=== PATIENT | female | born 1950 | race Caucasian/White ===

== ENCOUNTER 2017-02-28 18:42 | Emergency (ER) | payer MEDICARE ==
[2017-02-28 21:21] LABS: Hematocrit 34 % (35-47); Hemoglobin 11.2 g/dl (12.0-16.0); Mean Corpuscular HGB Conc 33 g/dl (31-36); Mean Corpuscular Hemoglobin 31 pg (27-31); Mean Corpuscular Volume 93 fL (80-97); Mean Platelet Volume 7 um3 (7.4-10.4); Red Blood Count 3.61 10^6/ul (4.0-5.4); Red Cell Distribution Width 13 % (10.5-15); White Blood Count 8.8 10^3/ul (3.5-10.8)
[2017-02-28 21:38] LABS: Albumin 3.8 g/dL (3.2-5.2); BUN/Creatinine Ratio 23.2 (8-20); EGFR African American 139.7 (>60); EGFR Non-African American 108.6 (>60); Globulin 2.6 g/dL (2-4); Potassium 4.4 mmol/L (3.5-5.0); Total Bilirubin 0.6 mg/dL (0.2-1.0); Total Protein 6.4 g/dL (6.4-8.9)
[2017-02-28 21:39] LABS: Troponin I 0.02 ng/mL (<0.04)
--- NOTE | 2017-02-28 21:46 | RAD ---
INDICATION: Dizziness COMPARISON: None TECHNIQUE: Noncontrast axial source images were acquired from the skull base to the vertex. FINDINGS: Ventricles/sulci: The ventricles and cisterns are normal in size and configuration for age. Brain parenchyma: There is no focal parenchymal finding, evidence of intracranial mass, or intracranial mass effect. Intracranial hemorrhage:None. Extra-axial spaces: There are no abnormal extra axial fluid collections or evidence of extra-axial mass. Calvarium: There is no calvarial fracture or other calvarial abnormality. Scalp: There is no evidence of scalp or extracalvarial soft tissue abnormality. Paranasal sinuses/mastoid: The paranasal sinuses and mastoid air cells are clear. Other: None. IMPRESSION: No acute intracranial findings
[2017-02-28] MEDS ORDERED: NS 0.9% 1000 ML* 1,000 ML IV ONE (22:31)
--- NOTE | 2017-02-28 23:55 | ED ---
Guillermo Martinez Alfonso, scribed for Akash Eduardo MD on 02/28/17 at 2035 . Dizziness - HPI Summary HPI Summary: This patient is a 66 year old female presenting to [facility] c/o vertigo that became worse at 1100 today. Her symptoms were most severe at 1630. Sx aggravated by nothing and alleviated by Meclizine at 1700. She reports nausea, difficultly driving, and feeling "not centered." The patient reports having these symptoms over the last month, but not being able to lift her arms and shaking in all her extremities are new today. She also reports slower speech and "I dont feel like I am being articulate. She denies room spinning. PMHx of vertigo. - History Of Current Complaint Chief Complaint: EDDizziness Stated Complaint: CANT LIFT ARMS/LEGS,NAUSEOUS Time Seen by Provider: 02/28/17 20:22 Hx Obtained From: Patient Onset/Duration: Resolved Timing: Hours - Since 1100 Severity Initially: Moderate Severity Currently: Moderate Aggravating Factor(s): Nothing Alleviating Factor(s): Other - Meclizine Associated Signs And Symptoms: Positive: Nausea, Other: - Positive difficulty driv - Allergies/Home Medications Allergies/Adverse Reactions: Allergies Allergy/AdvReac Type Severity Reaction Status Date / Time No Known Drug Allergy Allergy See Comment Verified 09/28/15 13:32 seasonal allergies Allergy Unknown Uncoded 09/28/15 06:49 Reaction Details Home Medications: Home Medications Biotin [Eql Biotin] 5,000 mcg PO DAILY 02/28/17 [History Confirmed 02/28/17] Diphenhydramine HCl 25 mg PO 02/28/17 [History] Fexofenadine HCl [Allergy Relief 24Hr] 180 mg PO DAILY 02/28/17 [History Confirmed 02/28/17] Flaxseed (Linseed) [Flax Seed Oil 1000 mg] 1 cap PO DAILY 02/28/17 [History Confirmed 02/28/17] Meclizine HCl [Meclizine 25] 25 mg PO BID PRN 02/28/17 [History Confirmed ] Ondansetron [Zofran 4 MG Odt] 4 mg PO Q12HR PRN 02/28/17 [History Confirmed ] Zolpidem Tartrate [Ambien] PO PRN 02/28/17 [History] PMH/Surg Hx/FS Hx/Imm Hx Endocrine/Hematology History: Denies: Hx Diabetes Cardiovascular History: Reports: Other Cardiovascular Problems/Disorders - 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 Not anymore she says. Denies: Hx Congestive Heart Failure, Hx Hypertension, Hx Pacemaker/ICD Respiratory History: Reports: Hx Asthma, Hx Sleep Apnea, Other Respiratory Problems/Disorders - PNEUMONIA 06/24 GI History: Reports: Hx Gastroesophageal Reflux Disease, Hx Jaundice - WITH HEP A History: Denies: Hx Renal Disease Musculoskeletal History: Reports: Hx Arthritis - NECK Denies: Hx Osteoporosis Sensory History: Reports: Hx Contacts or Glasses Denies: Hx Hearing Aid Opthamlomology History: Reports: Hx Contacts or Glasses Psychiatric History: Reports: Hx Anxiety - currently Denies: Hx Panic Disorder - Cancer History Hx Chemotherapy: No Hx Radiation Therapy: No - Surgical History Surgery Procedure, Year, and Place: LAPBAND THEN LAPBAND REMOVED THEN GASTRIC BYPASS 09/28/15 Hx Anesthesia Reactions: No Infectious Disease History: No Infectious Disease History: Reports: Hx Hepatitis - HEP A IN Denies: Traveled Outside the [place] in Last 30 Days - Family History Known Family History: Positive: Cardiac Disease - Father [place], Diabetes - Brother , Other - Breast cancer mother - Social History Alcohol Use: She said usually she drinks on weekends but has not been drinking in awhile Alcohol Amount: 2/WEEK Substance Use Type: Reports: None Smoking Status (MU): Former Smoker Type: Cigarettes Length of Time of Smoking/Using Tobacco: Started late 1969 and smoked for 5 years. Have You Smoked in the Last Year: No Review of Systems Positive: Nausea Positive: Other - Not being able to lift her arms and shaking in all her extremities are new today Neurological: Other - Positive vertigo, difficultly driving, feeling "not centered, slower speech, and feeling like I am being articulate. Negative room spinning. All Other Systems Reviewed And Are Negative: Yes Physical Exam Triage Information Reviewed: Yes Vital Signs On Initial Exam: Initial Vitals Temp Pulse Resp BP Pulse Ox 96.5 F 66 18 151/83 100 02/28/17 18:44 02/28/17 18:44 02/28/17 18:44 02/28/17 18:44 02/28/17 18:44 Vital Signs Reviewed: Yes Appearance: Positive: Well-Appearing, No Pain Distress Skin: Positive: Warm, Skin Color Reflects Adequate Perfusion, Dry Head/Face: Positive: Normal Head/Face Inspection Eyes: Positive: Other: - Non fatiguing horizontal nystagmus in both directions and at rest ENT: Positive: Normal ENT inspection Neck: Positive: Supple, Nontender Respiratory/Lung Sounds: Positive: Clear to Auscultation, Breath Sounds Present Cardiovascular: Positive: RRR Abdomen Description: Positive: Nontender, Soft Bowel Sounds: Positive: Present Musculoskeletal: Positive: Normal Neurological: Positive: Normal, Sensory/Motor Intact, Alert, Oriented to Person Place, Time, CN Intact II-III Psychiatric: Positive: Normal Diagnostics - Vital Signs Vital Signs Temp Pulse Resp BP Pulse Ox 02/28/17 19:54 97.3 F 59 20 144/89 100 02/28/17 18:44 96.5 F 66 18 151/83 100 - Laboratory Lab Results: Lab Results 02/28/17 02/28/17 02/28/17 Range/Units 21:15 21:15 21:15 WBC 8.8 (3.5-10.8) 10^3/ul RBC 3.61 L (4.0-5.4) 10^6/ul Hgb 11.2 L (12.0-16.0) g/dl Hct 34 L (35-47) % MCV 93 (80-97) fL MCH 31 (27-31) pg MCHC 33 (31-36) g/dl RDW 13 (10.5-15) % Plt Count 174 (150-450) 10^3/ul MPV 7 L (7.4-10.4) um3 Neut % (Auto) 75.2 (38-83) % Lymph % (Auto) 17.1 L (25-47) % [place] % (Auto) 4.8 (1-9) % Eos % (Auto) 2.5 (0-6) % Baso % (Auto) 0.4 (0-2) % Absolute Neuts (auto) 6.6 (1.5-7.7) 10^3/ul Absolute Lymphs (auto) 1.5 (1.0-4.8) 10^3/ul Absolute Monos (auto) 0.4 (0-0.8) 10^3/ul Absolute Eos (auto) 0.2 (0-0.6) 10^3/ul Absolute Basos (auto) 0 (0-0.2) 10^3/ul Absolute Nucleated RBC 0.01 10^3/ul Nucleated RBC % 0.1 Sodium 123 L (133-145) mmol/L Potassium 4.4 (3.5-5.0) mmol/L Chloride 93 L (101-111) mmol/L Carbon Dioxide 24 (22-32) mmol/L Anion Gap 6 (2-11) mmol/L BUN 13 (6-24) mg/dL Creatinine 0.56 (0.51-0.95) mg/dL Est GFR ( Amer) 139.7 (>60) Est GFR (Non-Af Amer) 108.6 (>60) BUN/Creatinine Ratio 23.2 H (8-20) Glucose 115 H (70-100) mg/dL Lactic Acid 0.6 (0.5-2.0) mmol/L Calcium 9.0 (8.6-10.3) mg/dL Total Bilirubin 0.60 (0.2-1.0) mg/dL AST 24 (13-39) U/L ALT 24 (7-52) U/L Alkaline Phosphatase 117 H (34-104) U/L Troponin I 0.02 (<0.04) ng/mL Total Protein 6.4 (6.4-8.9) g/dL Albumin 3.8 (3.2-5.2) g/dL Globulin 2.6 (2-4) g/dL Albumin/Globulin Ratio 1.5 (1-3) Result Diagrams: 02/28/17 21:15 02/28/17 21:15 Lab Statement: Any lab studies that have been ordered have been reviewed, and results considered in the medical decision making process. - CT CT Brain CT Interpretation: No Acute Changes - No acute intracranial findings CT Interpretation Completed By: Radiologist - EKG 2021 Cardiac Rate: NL EKG Rhythm: Sinus Rhythm EKG Interpretation: LBBB Re-Evaluation - Re-Evaluation First Eval Re-Evaluation Time: 22:28 Comment: Discussed results with the patient. They do not want to be admitted to the hospital. Dizzy Course/Dx - Course Course Of Treatment: Ms. Lozano had an acute exacerbation of her chronic vertigo today. It was accompanied by unusual symptoms such as a C/O her arms and legs not working right. She is feeling better. Her W/U showed hyponatremia and she admitted that she has been drinking a lot of water because of her gastric bypass. I recommended admission because of the odd arm and leg involvment but she refused saying she felt better. She got a lliter of NS here and I recommended she curb her water intake to 2 liters for now and F/U. - Diagnoses Provider Diagnoses: Vertigo, Hyponatremia Discharge - Discharge Plan Condition: Stable Disposition: HOME Patient Education Materials: Hyponatremia (ED), Vertigo (ED) Referrals: Berna Trinidad MD [Primary Care Provider] - 3 Days The documentation as recorded by the Guillermo yan Alfonso accurately reflects the service I personally performed and the decisions made by me, Akash Eduardo MD.
[2017-03-01 00:41] VITALS: BP 130/81
== END 2017-03-01 00:42 | disposition home or self-care (01) ==
LOC: ED 18:42
DX: R42 Dizziness and giddiness (principal); E87.1 Hypo-osmolality and hyponatremia; R11.0 Nausea; Z87.891 Personal history of nicotine dependence
CPT/HCPCS: 36415; 70450; 80053; 83605; 84484; 85025; 93005; 99283

== ENCOUNTER → 2019-07-01 06:47 | Day surgery (SDC) | payer MEDICARE ==
[~2019-07-01 06:47] MED LIST: Acetaminophen TAB* 325 MG PO PRN; Buffered Lidocaine 1% SYRIN* 1 ML/SYRINGE INTRADERM ONE; Bupivacaine 0.25% W/EPI* 10 ML SDV ONE; Dexamethasone IV* 4 MG/ML 1 ML (4 MG) IV SLOW PU ONE; Dexamethasone IV* 4 MG/ML 1 ML (4 MG) ONE; DiMENhydriNATE IV* 50 MG/ML VIAL IV PUSH PRN; Famotidine IV* 10 MG/ML 2 ML (20 mg) IV ONE; Famotidine IV* 10 MG/ML 2 ML (20 mg) ONE; Glycopyrrolate IV* 0.2 MG/ML 1 ML VIAL ONE; HYDROcodone/ACETAMIN 5-325 MG* 1 TAB PO PRN; Ketorolac INJ* 30 MG/ML 1 ML VIAL ONE; Lactated Ringers 1000 ML Bag* 1,000 ML IV SCH; Lidocaine 2% PF * 5 ML VIAL ONE; Midazolam* 1 MG/ML 2 ML VIAL (2 MG) ONE; Naloxone* 0.4 MG/ML 1 ML VIAL IV PRN; Neostigmine Methylsulfate* 3 MG/3 ML SYRINGE ONE; Ondansetron INJ* 2 MG/ML VIAL ONE; Propofol* 10 MG/ML 20 ML BTL ONE; Rocuronium* 10 MG/ML VIAL ONE; ceFAZolin 2 GM PREMIX in ORs 2 GM/50 ML BAG ONE; fentaNYL* 50 MCG/ML 2 ML VIAL (100 MCG VIAL) ONE; oxyCODONE TAB* 5 MG TAB ONE
[2019-07-01] MEDS: fentaNYL* 50 MCG/ML 2 ML VIAL (100 MCG VIAL) IV PRN ×2 (11:55→12:04)
[2019-07-01] MEDS: oxyCODONE TAB* 5 MG TAB PO PRN ×2 (11:55→12:16)
[2019-07-01 12:49] VITALS: BP 129/80
--- NOTE | 2019-07-01 22:34 | OP ---
CC: Berna Trinidad MD; [facility] * DATE OF OPERATION: 07/01/19 - [facility] DATE OF : 52 SURGEON: Dr. Saunders. PAPER CONE MAKER: THANG Dixon. ANESTHESIOLOGIST: Radha Hickman MD. ANESTHESIA: General endotracheal. PRE-OP DIAGNOSIS: Symptomatic cholelithiasis. POST-OP DIAGNOSIS: Symptomatic cholelithiasis. OPERATIVE PROCEDURE: Laparoscopic cholecystectomy. ESTIMATED BLOOD LOSS: 100 mL. IV FLUIDS: Crystalloids. SPECIMENS: Gallbladder. DRAINS: None. COMPLICATIONS: None. COUNTS: Instrument, needle, and sponge counts were correct. DESCRIPTION OF PROCEDURE: The patient was brought to the operating room and placed on the table, supine. Sequential compression devices were placed on both lower extremities. General anesthesia was administered and the abdomen was prepped and draped in the usual sterile fashion. A time-out was performed. Local anesthetic was infiltrated into the skin and soft tissues prior to making each incision. Entry to the abdomen was through a infraumbilical curvilinear incision using an open technique and then after accessing the peritoneal cavity a 12 mm trocar was placed and carbon dioxide was insufflated to a pressure of 15 mmHg. Under direct visualization, 5 mm trocars were placed in the subxiphoid position and 2 in the right upper quadrant. Utilizing a 0-degree 5 mm laparoscope in the right upper quadrant, the gallbladder fundus was grasped and retracted cephalad. A number of adhesions of the gallbladder to the lesser omentum were taken down using a combination of sharp and blunt dissection. The infundibulum of the gallbladder was identified and using the sharp dissection and blunt dissection, the peritoneum was invested and the gallbladder was incised along the medial and lateral aspects. This extended the dissection upon on to the body of the gallbladder where the cystic artery was identified, it was bluntly dissected out. The cystic duct was then also bluntly dissected out and critical view was obtained before doubly clipping and dividing both the cystic duct and the cystic artery. Then, cautery was used to divide the gallbladder, trying to maintain an avascular plane between the gallbladder and the liver bed. There was a tear on the capsule of the liver along the right side of the gallbladder fossa, which was subsequently controlled with the use of Surgicel and direct pressure. Ultimately, gallbladder was freed, was placed into an endoscopic retrieval bag, retrieved through the umbilical site. Copious lavage of the abdomen was performed with warm saline until clear. After ensuring hemostasis and ensuring that the clips were intact, the ports were removed and carbon dioxide was released. The umbilicus was closed with 0- Vicryl in an interrupted fashion to approximate the fascia. Skin incisions were closed with 4-0 Monocryl in a subcuticular fashion. Steri-Strips were applied. The patient tolerated the procedure well and was extubated uneventfully and transferred to the Recovery in stable condition. [id number]/[facility] #: [id number] MTDD
== END | disposition home or self-care (01) ==
LOC: OR 06:47
PROVIDERS: ATTEND Surgery
DX: K80.10 Calculus of gallbladder with chronic cholecystitis without obstruction (principal); I42.9 Cardiomyopathy, unspecified; G47.33 Obstructive sleep apnea (adult) (pediatric); R42 Dizziness and giddiness; I44.7 Left bundle-branch block, unspecified; G25.81 Restless legs syndrome; J45.909 Unspecified asthma, uncomplicated
CPT/HCPCS: 47562; 88304; A9270-GY; J0690; J1100; J1885; J2250; J2405; J2704; J2710; J3010